=== PATIENT | male | born 2000 | race Caucasian/White ===

== ENCOUNTER 2022-04-02 12:37 | Emergency (ER) | payer SELFPAY | END 2022-04-02 13:47 | disposition home or self-care (01) | LOC: JP.ED 12:37 | DX: S93.402A Sprain of unspecified ligament of left ankle, initial encounter (principal); F17.210 Nicotine dependence, cigarettes, uncomplicated; X50.1XXA Overexertion from prolonged static or awkward postures, initial encounter; Y93.01 Activity, walking, marching and hiking | CPT/HCPCS: 73610-26-LT; 73610-LT; 99282; 99283 ==

== ENCOUNTER 2022-04-02 23:55 | Emergency (ER) | payer SELFPAY ==
[2022-04-03] MEDS ORDERED: Acetaminophen/Codeine 300-30 MG Tab PO ONE (00:28)
== END 2022-04-03 00:50 | disposition home or self-care (01) ==
LOC: JP.ED 23:55
DX: S93.402A Sprain of unspecified ligament of left ankle, initial encounter (principal); X50.1XXA Overexertion from prolonged static or awkward postures, initial encounter
CPT/HCPCS: 99282; 99283; A9270-GY

== ENCOUNTER 2023-05-01 18:18 | Emergency (ER) | payer SELFPAY ==
[2023-05-01] MEDS: diphenhydrAMINE 25 MG/10 ML Cup ONE (20:11)
[2023-05-01] MEDS: Aluminum Hydroxide/Magnesium Hydroxide/Simethicone Susp 30 ML Cup ONE (20:11)
[2023-05-01] MEDS: Lidocaine 2% Viscous Solution 15 ML UD ONE (20:12)
[2023-05-01] MEDS: Lidocaine 2% 30 ML, Alum Hydrox/Mag Hydrox/Simeth 30 ML, diphenhydrAMINE 75 MG PO PRN (20:12)
== END 2023-05-01 20:18 | disposition home or self-care (01) ==
LOC: JP.ED 18:18
DX: K04.7 Periapical abscess without sinus (principal); B37.0 Candidal stomatitis
CPT/HCPCS: 99283; A9270

== ENCOUNTER 2024-01-05 16:14 | Emergency (ER) | payer SELFPAY ==
[2024-01-05] MEDS ORDERED: Diphtheria,Pertussis(Acell),Tetanus Vaccine 0.5 ML Syringe IM ONE (16:55)
== END 2024-01-05 17:42 | disposition home or self-care (01) ==
LOC: JP.ED 16:14
DX: S61.052A Open bite of left thumb without damage to nail, initial encounter (principal); W54.0XXA Bitten by dog, initial encounter
CPT/HCPCS: 73130-26-LT; 73130-LT; 99283

== ENCOUNTER 2024-03-06 01:48 | Emergency (ER) | payer SELFPAY ==
[2024-03-06 02:43] LABS: BASOPHILS PERCENT AUTO 0.2 % (0.1-1.3); EOSINOPHILS ABSOLUTE AUTO 0.06 K/uL (0.00-0.40); EOSINOPHILS PERCENT AUTO 0.6 % (0.0-5.4); HEMATOCRIT 36.8 % (38.4-49.7); HEMOGLOBIN 12.5 g/dL (12.9-16.9); IMMATURE GRAN ABSOLUTE AUTO 0.03 K/uL (0.00-0.23); IMMATURE GRAN PERCENT AUTO 0.3 % (0.0-0.7); LYMPHOCYTES ABSOLUTE AUTO 2.12 K/uL (0.8-3.3); MEAN CORPUSCULAR HEMOGLOBIN 27.6 pg (31.6-35.5); MEAN CORPUSCULAR VOLUME 81.2 fL (81.4-99.0); MONOCYTES ABSOLUTE AUTO 0.61 K/uL (0.20-0.90); MONOCYTES PERCENT AUTO 6.3 % (3.3-12.6); NEUTROPHILS PERCENT AUTO 70.6 % (40.0-78.1); PLATELET COUNT,PLT 216 K/uL (130-375); RED BLOOD CELL COUNT 4.53 M/uL (4.14-5.76); WHITE BLOOD CELL COUNT,WBC 9.6 K/uL (3.2-11.0)
[2024-03-06 02:46] LABS: BASOPHILS ABSOLUTE AUTO 0.02 K/uL (0.00-0.10)
[2024-03-06 02:58] LABS: CALCIUM 9.4 mg/dL (8.5-10.1); CREATININE 1.1 mg/dL (0.8-1.3); EST CRCL DRUG DOSING (CG) 86.37 mL/min; POTASSIUM,K 3.5 mmol/L (3.6-5.2)
[2024-03-06 02:59] LABS: ANION GAP 14.5 mmol/L (5.0-14.0)
[2024-03-06 03:02] LABS: APPEARANCE,URINE CLEAR (CLEAR); BILIRUBIN,URINE NEGATIVE (NEGATIVE); COLOR,URINE YELLOW (YELLOW); GLUCOSE,URINE NEGATIVE (NEGATIVE); KETONES,URINE NEGATIVE (NEGATIVE); LEUKOCYTE ESTERASE,URINE NEGATIVE (NEGATIVE); NITRITE,URINE NEGATIVE (NEGATIVE); OCCULT BLOOD,URINE NEGATIVE (NEGATIVE); PH,URINE 6.5 (5.0-8.0); PROTEIN,URINE NEGATIVE (NEGATIVE)
[2024-03-06 03:09] LABS: AMORPHOUS SEDIMENT,URINE NOT SEEN; BACTERIA,URINE RARE; EPITHELIAL CELLS,URINE RARE; MUCUS,URINE NOT SEEN; RBC,URINE 0-5 (0-5); WBC,URINE 0-5 (0-5)
[2024-03-06] MEDS ORDERED: cefTRIAXone 500 MG Vial IM ONE (03:20)
[2024-03-06] MEDS: cefTRIAXone 500 MG, Lidocaine 1% 1 ML IM ONE (03:41)
[2024-03-06] MEDS: Levofloxacin 250 MG Tab PO ONE (03:42)
[2024-03-11 01:53] LABS: APTIMA MEDIA TYPE Urine; C. TRACHOMATIS BY TMA Negative (Negative); N. GONORRHOEAE BY TMA Negative (Negative); SPECIMEN SOURCE Urine
== END 2024-03-06 03:59 | disposition home or self-care (01) ==
LOC: JP.ED 01:48
DX: N45.1 Epididymitis (principal); F17.210 Nicotine dependence, cigarettes, uncomplicated
CPT/HCPCS: 36415; 80048; 81001; 83605; 85025; 87491; 87591; 96372; 99284; A9270; J0696

== ENCOUNTER 2024-05-06 04:42 | Emergency (ER) | payer OTHER ==
[2024-05-06] MEDS: HYDROmorphone 0.5 MG/0.5 ML Syringe IVPUSH ONE ×2 (05:21→07:57)
[2024-05-06] MEDS: Naproxen 250 MG Tab PO SCH (07:55)
== END 2024-05-06 09:20 | disposition home or self-care (01) ==
LOC: JP.ED 04:42
DX: S92.122A Displaced fracture of body of left talus, initial encounter for closed fracture (principal); S92.002A Unspecified fracture of left calcaneus, initial encounter for closed fracture; S93.402A Sprain of unspecified ligament of left ankle, initial encounter; W23.1XXA Caught, crushed, jammed, or pinched between stationary objects, initial encounter
CPT/HCPCS: 36415; 73610; 73630; 82550; 96374; 96376; 99284; A9270